=== PATIENT | female | born 1935 | race Caucasian/White ===

== ENCOUNTER 2019-03-15 22:39 | Emergency (ER) | payer MEDICARE ==
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
[2019-03-16 00:01] VITALS: BP 132/72
== END 2019-03-16 | disposition home or self-care (01) ==
LOC: ED 22:39
DX: S01.01XA Laceration without foreign body of scalp, initial encounter (principal); W19.XXXA Unspecified fall, initial encounter; Y92.89 Other specified places as the place of occurrence of the external cause; E11.9 Type 2 diabetes mellitus without complications; I10 Essential (primary) hypertension; M06.9 Rheumatoid arthritis, unspecified; Z79.82 Long term (current) use of aspirin; Z79.84 Long term (current) use of oral hypoglycemic drugs; Z79.899 Other long term (current) drug therapy
CPT/HCPCS: 99282